=== PATIENT | male | born 1970 | race Caucasian/White ===

== ENCOUNTER → 2024-05-28 | Outpatient (CLI) | payer BC ==
[2024-05-28 14:42] LABS: HEMATOCRIT(ML) 45.4 % (37.0-53.0); HEMOGLOBIN 15.8 g/dL (13.9-16.3); MEAN CORP HGB 30.9 pg (26-34); MEAN CORP HGB CONCENTRATION 34.8 g/dL (33-36.5); MEAN CORP VOLUME 88.8 fL (78-100); RED BLOOD CELL 5.11 10^6/uL (4.50-5.90); RED CELL DISTRIBUTION WIDTH 12.4 % (11.5-14.5); WHITE BLOOD CELL 5.5 10^3/uL (4.5-11.0)
== END | disposition home or self-care (01) ==
LOC: LAB 14:28
PROVIDERS: ATTEND Nurse Practitioner Family
DX: Z12.5 Encounter for screening for malignant neoplasm of prostate (principal); E29.1 Testicular hypofunction
CPT/HCPCS: 36415; 84153; 85027

== ENCOUNTER → 2024-09-16 | Outpatient (CLI) | payer BC ==
[2024-09-16 10:29] LABS: BASOPHIL % 0.2 % (0.2-1.2); EOSINOPHIL # 0.1 10^3/uL (0.0-0.2); EOSINOPHIL % 2.7 % (0.0-5.0); HEMATOCRIT(ML) 52.3 % (37.0-53.0); HEMOGLOBIN 17.4 g/dL (13.9-16.3); LYMPHOCYTES # 0.96 10^3/uL1 (1.0-4.8); LYMPHOCYTES % 23.9 % (24.0-44.0); MEAN CORP HGB CONCENTRATION 33.3 g/dL (33-36.5); MEAN CORP VOLUME 93.1 fL (78-100); MONOCYTES # 0.5 10^3/uL (0.3-0.8); MONOCYTES % 11.2 % (5.0-12.0); NEUTROPHIL # 2.5 10^3/uL (1.8-7.7); PLATELET COUNT 255 10^3/uL (150-400); RED BLOOD CELL 5.62 10^6/uL (4.50-5.90); RED CELL DISTRIBUTION WIDTH 12.8 % (11.5-14.5)
[2024-09-16 10:34] LABS: +ADD MANUAL DIFF(NO CHRG) NO
[2024-09-16 11:03] LABS: ALBUMIN(ML) 4.1 g/dL (3.4-5.0); ALBUMIN/GLOBULIN RATIO 1.205; ANION GAP 11.6; BUN/CREATININE RATIO 11.22 (10.0-20.0); CALCIUM 9.1 mg/dL (8.4-10.5); CARBON DIOXIDE 28.4 mmol/L (20.0-32); CREATININE SERUM 0.98 mg/dL (0.59-1.40); LDL/HDL RATIO 2.6
== END | disposition home or self-care (01) ==
LOC: LAB 10:06
PROVIDERS: ATTEND Nurse Practitioner Family
DX: E78.5 Hyperlipidemia, unspecified (principal); I10 Essential (primary) hypertension
CPT/HCPCS: 36415; 80050; 80061; 83036; 84403; 84439